=== PATIENT | female | born 1990 | race Caucasian/White ===

== ENCOUNTER 2020-06-25 15:35 | Emergency (ER) | payer BC, SELFPAY ==
[2020-06-25 16:36] VITALS: BP 101/73; PULSE 68; RESP 14; TEMP 36.9; O2SAT 100; BMI 31.1
--- NOTE | 2020-06-25 16:44 | HMH.EDUTC ---
[place] Disposition Clinical Impression: UTI (urinary tract infection) Qualifiers: Urinary tract infection type: site unspecified Hematuria presence: with hematuria Qualified Code(s): N39.0 - Urinary tract infection, site not specified Disposition: Home, Self-Care Condition on Discharge: Good Instructions: Urinary Tract Infection, DI for Urinary Tract Infection (UTI) Additional Instructions: Drink plenty of fluids. Take tylenol or ibuprofen for pain or fever. Take the medications as directed. Follow up with your regular doctor. GO TO THE ER FOR ANY WORSENING SYMPTOMS The pyridium will make your urine turn orange, this is an expected side effect. It will stain your clothes if it comes into contact with them. Prescriptions: Ondansetron [Zofran 4mg ODT] 4 mg PO Q8HP PRN #9 tab.rapdis PRN Reason: Nausea Transmission Status: Received by [facility] Sulfamethoxazole/Trimethoprim [Bactrim DS tablet] 1 each PO BID 7 Days #14 tab Transmission Status: Received by [facility] Phenazopyridine HCl [Pyridium 200mg Tablet] 200 pow PO TID #6 tab Transmission Status: Received by [facility] Referrals: PCP,No [Primary Care Provider] - Forms: Work/School Release Time of Disposition: 17:03 Medical Decision Making - Medical Records Medical records reviewed: No: I reviewed the patient's medical records. - Joey Inquiry Pt receiving controlled substance: No Vital Signs: 06/25/20 16:36 06/25/20 17:35 Temperature 98.4 F 98.4 F Temperature Source Oral Oral Pulse Rate 68 Pulse Rate [Radial] 68 Respiratory Rate 14 14 Blood Pressure 101/73 L Blood Pressure [Right Radial Artery] 101/73 L Blood Pressure Mean [Right Radial Artery] 82 Blood Pressure Source Automatic Cuff Blood Pressure Source [Right Radial Artery] Automatic Cuff Blood Pressure Position Sitting Blood Pressure Position [Right Radial Artery] Sitting 02 Sat by Pulse Oximetry 100 Oxygen Delivery Method Room Air Room Air - Lab Data Lab results reviewed: Yes: I reviewed the patient's lab results. Lab Results 06/25/20 17:27: Urine Color Dark yellow, Urine Appearance Slightly cloudy, Urine pH 7.0, Ur Specific Arnold 1.025, Urine Protein 2+, Urine Glucose (UA) Negative, Urine Ketones Trace, Urine Blood Negative, Urine Nitrate Negative, Urine Bilirubin 1+ A, Urine Urobilinogen 0.2, Ur Leukocyte Esterase Trace Orders (Tests/Meds): ORDERS Category Date Time Status Urine Culture Stat Micro 06/25/20 16:40 Received Medical Decision Narrative: At this time, she does not want to go to the er for further evaluation (ct scan for kidney stone). She is willing to return if her symptoms worsen. She is to f/u with her pcp tomorrow if her hematuria continues. [place] HPI - General Stated complaint: Possible UTI Time Seen by Provider: 06/25/20 16:45 - History of Present Illness Provider Complaint: She states that since this morning she has been having burning while she urinates and low back pain. She was at work when her symptoms began. She was sent to a [facility] in [place] and had a rapid covid test (it was negative), but at the time she did not realize that she was probably getting a uti. - Related Data Previous Rx's Medication Instructions Recorded predniSONE [Prednisone 20mg 20 mg PO BID #10 tab 11/25/18 Tab] Ondansetron [Zofran 4mg ODT] 4 mg PO Q8HP PRN #9 tab.rapdis 06/25/20 Phenazopyridine HCl [Pyridium 200 pow PO TID #6 tab 06/25/20 200mg Tablet] Sulfamethoxazole/Trimethoprim 1 each PO BID 7 Days #14 tab 06/25/20 [Bactrim DS tablet] Allergies Allergy/AdvReac Type Severity Reaction Status Date / Time No Known Allergies Allergy Verified 11/25/18 21:45 [facility] History - Hepatitis A Screen Attestation statement:: This patient has been screened for Hepatitis A risk factors. I have reviewed the patient's past medical history: Yes Oth
[2020-06-25 17:35] VITALS: BP 101/73; PULSE 68; RESP 14; TEMP 36.9; O2SAT 100
[2020-06-25 17:59] LABS: Apearance,Urine Slightly Cloudy (Clear); Color,Urine Dark Yellow (Yellow); Glucose,Urine (UA) Negative (Negative); Ketones,Urine TRACE (Negative); Protein,Urine 2+ (Negative); Specific Gravity, Urine 1.025 (1.005-1.030)
[2020-06-25 18:00] LABS: Bilirubin,Urine 1+ (Negative); Blood, Urine Negative (Negative); UTC Leukocyte Esterase,Urine Trace (Negative); UTC Nitrate,Urine Negative (Negative); Urobilinogen,Urine 0.2 EU/dl (0.2)
== END 2020-06-25 17:36 | disposition home or self-care (01) ==
PROVIDERS: Emergency Provider Nurse Practitioner Family
DX: N30.01 Acute cystitis with hematuria (principal)
CPT/HCPCS: 81003; 87086; 99201

== ENCOUNTER 2021-05-07 15:05 | Emergency (ER) | payer BC, SELFPAY ==
[2021-05-07 21:12] VITALS: BP 0/0; PULSE 0; RESP 0; TEMP -17.7; TEMP 0; O2SAT 0
== END 2021-05-07 21:13 | disposition home or self-care (01) ==
LOC: UTC 15:09
PROVIDERS: Emergency Provider Nurse Practitioner; PCP Pediatrics
DX: Z53.21 Procedure and treatment not carried out due to patient leaving prior to being seen by health care provider (principal)

== ENCOUNTER → 2021-05-07 20:24 | Outpatient (CLI) | payer BC, SELFPAY | PROVIDERS: Visit Provider Nurse Practitioner Family | DX: Z20.822 Contact with and (suspected) exposure to COVID-19 (principal); J02.9 Acute pharyngitis, unspecified | CPT/HCPCS: U0003 ==

== ENCOUNTER → 2021-07-28 19:46 | Outpatient (CLI) | payer BC, SELFPAY | PROVIDERS: Visit Provider Nurse Practitioner Family | DX: Z20.822 Contact with and (suspected) exposure to COVID-19 (principal); J02.9 Acute pharyngitis, unspecified | CPT/HCPCS: C9803; U0003; U0005 ==

== ENCOUNTER 2022-08-23 09:06 | Emergency (ER) | payer BC, SELFPAY ==
--- NOTE | 2022-08-23 10:13 | EXP.UTC ---
Discharge Plan Disposition Patient Disposition: Home, Self-Care Condition: Good Prescriptions Prescriptions: New azithromycin [Zithromax] 250 mg tablet 250 mg PO UD DOSE PK Qty: 6 0RF Rx Instructions: Take two (2) tablets today, then one (1) tablet days #2 thru #5 [id number] [Bromfed DM] 2-30-10 mg/5 mL Syrup 5 ml PO Q6H PRN (Reason: Cough) Qty: 240 0RF oseltamivir [Tamiflu] 75 mg capsule 75 mg PO BID Qty: 10 0RF Referrals Follow up/Referrals: Provider,Referral, MD [Primary Care Provider] - See instructions Activity Restrictions/Add. Instructions Additional Instructions/Restrictions: Drink plenty of fluids. Take tylenol or ibuprofen for pain or fever. Take the medications as directed. Follow up with your regular doctor. GO TO THE ER FOR ANY WORSENING SYMPTOMS Clinical Impressions Clinical Impression: Acute viral syndrome Stand Alone Forms Stand Alone Forms: Work/School Release Instructions Patient Instructions: DI for Influenza -- Adult, Oseltamivir Discharge ED Provider: Sandro Kim [facility] General Stated complaint: fever,headache,body aches Time Seen by Provider: 08/23/22 10:13 History of Present Illness Provider Complaint: She states that for the past 2 days she has had body aches, chills, fever, and malaise. Related Data Previous Rx's Medication Instructions Recorded azithromycin 250 mg tablet 250 mg PO UD DOSE PK #6 tabs 08/23/22 (Zithromax) gwbtieyfjknejpi-grdpbqzozuzsvuf-HV 5 ml PO Q6H PRN Cough #240 mL 08/23/22 2 mg-30 mg-10 mg/5 mL oral syrup (Bromfed DM) oseltamivir 75 mg capsule (Tamiflu) 75 mg PO BID #10 caps 08/23/22 Allergies Allergy/AdvReac Type Severity Reaction Status Date / Time No Known Allergies Allergy Verified 08/23/22 10:23 [facility] Disclaimer: The information contained in this section may have been updated after the patient was seen, as this information can be updated by other users. Social History Smoking Status: Current some day smoker alcohol intake: never substance use type: denies use current occupational status: employed Travel in the last 8 weeks: None household members: children housing: house ROS Obtained: Yes All systems reviewed & no additional complaints except as documented Constitutional Constitutional: Reports chills and Reports fever(s) Eyes Eyes: Denies eye discharge ENT Ears, Nose, Mouth, and Throat: Reports as per HPI Cardiovascular Cardiovascular: Denies chest pain Respiratory Respiratory: Denies chest congestion and Reports cough Gastrointestinal Gastrointestingal: Reports nausea; Denies abdominal pain, constipation, cramping, diarrhea or vomiting Musculoskeletal Musculoskeletal: Denies arthralgias Integumentary/Breasts Skin/Breast: Denies rash Neurologic Neurologic: Denies paresthesias Physical Exam General General appearance: alert and in no apparent distress Head Head exam: atraumatic, normocephalic and normal inspection Eye Eye exam: Present normal appearance, PERRL and EOMI ENT ENT exam: Present normal exam, normal oropharynx, mucous membranes moist, TM's normal bilaterally and normal external ear exam Neck Neck exam: Present normal inspection, full ROM and trachea midline; Absent meningismus or lymphadenopathy Chest Chest inspection: Present normal inspection and symmetric chest wall rise; Absent tenderness Respiratory Respiratory exam: Present normal lung sounds bilaterally; Absent respiratory distress Cardiovascular Cardiovascular exam: Present regular rate and normal rhythm; Absent JVD Abdominal Exam Abdominal exam: Present soft and normal bowel sounds; Absent distention, tenderness or guarding Extremities Exam Extremities exam: Present normal inspection, full ROM and normal capillary refill; Absent calf tenderness Back Exam Back exam: Present normal inspection; Absent tenderness Neurologi
[2022-08-23 10:19] VITALS: BP 108/69; PULSE 94; RESP 16; TEMP 37.1; O2SAT 100; BMI 32.9
[2022-08-23 10:21] LABS: Coronavirus 19, PCR Not Detected (NotDetected); Influenza B, PCR Not Detected (NotDetected)
[2022-08-23 10:56] VITALS: BP 108/69; PULSE 94; RESP 16; TEMP 37.1
[2022-08-23 12:54] LABS: Influenza A, PCR Detected (NotDetected)
== END 2022-08-23 11:11 | disposition home or self-care (01) ==
PROVIDERS: Emergency Provider Nurse Practitioner Family
DX: J10.1 Influenza due to other identified influenza virus with other respiratory manifestations (principal)
CPT/HCPCS: 99212; C9803; G0463; U0003; U0005

== ENCOUNTER 2022-10-25 10:52 | Emergency (ER) | payer BC, SELFPAY ==
[2022-10-25 11:55] VITALS: BP 144/75; PULSE 98; RESP 19; TEMP 37.5; O2SAT 100; BMI 31.2
[2022-10-25 12:05] LABS: UTC Strep Screen (Rapid) Positive (Negative)
--- NOTE | 2022-10-25 12:33 | EXP.UTC ---
Discharge Plan Disposition Patient Disposition: Home, Self-Care Condition: Good Prescriptions Prescriptions: New amoxicillin 875 mg tablet 875 mg PO Q12H Qty: 20 0RF Referrals Follow up/Referrals: Provider,Referral, MD [Primary Care Provider] - See instructions Activity Restrictions/Add. Instructions Additional Instructions/Restrictions: *Monitor Temp, Over the counter Motrin or Tylenol as directed/as needed Tylenol every 4 hours and Motrin every 6 hours (as long as your family doctor has told you that you can take it) for fever or pain. and straight to ER if unable to lower temp less than 101.0 after medication given *Warm salt water gargles may help to soothe the throat *Throat Lozenges? *Warm fluids like tea with honey may help to soothe the throat? *Sleep elevated *Humidifier/Vaporizer *If you did not take Penicillin shot or was unable to, start taking antibiotic immediately and make sure that you take it for the FULL length of time although you should start to feel better in 24-48 hours *change toothbrush and toothpaste 24-48 hours after starting to take antibiotics so you do not reinfect yourself Monitor Temp. Tylenol and/or Ibuprofen as needed. ER if fever is no less than 101 despite alternating Tylenol and Ibuprofen * Encourage fluids, water, Gatorade, powerade, pedialyte if infant/toddler/or child *Cold fluids, popsicles and ice cream may feel good on his throat Follow up IMMEDIATELY for new or worsening symptoms or no Noticeable improvement over the next 48-72 hours. 911 for difficulty breathing or swallowing Clinical Impressions Clinical Impression: Strep throat Stand Alone Forms Stand Alone Forms: Work/School Release Instructions Patient Instructions: DI for Strep Throat, Strep Throat Discharge ED Provider: Pauline Del Valle [facility] General Stated complaint: Sore throat fever bodyaches chills Mode of Arrival: Ambulatory Source of Information: Patient Limitations: No Limitations Time Seen by Provider: 10/25/22 12:33 Description of Symptoms (Recalled from Triage Doc. by RN): PATIENT C/O SORE THROAT, CHILLS, BODY ACHES, AND HEADACHE SINCE THIS MORNING HEENT Symptoms (Recalled from RN notes): Yes Resp Symptoms (Recalled from RN notes): No Skin Symptoms (Recalled from RN notes): No MS Symptoms (Recalled from RN notes): No Functional Status (Recalled from RN notes): WNL History of Present Illness Provider Complaint: Patient states that she started this morning with fever, headache, chills, and sore throat States that her throat hurts when she swallows and feels swollen As the day went on she was feeling worse so she came in to get it checked Related Data Previous Rx's Medication Instructions Recorded amoxicillin 875 mg tablet 875 mg PO Q12H #20 tabs 10/25/22 Allergies Allergy/AdvReac Type Severity Reaction Status Date / Time No Known Allergies Allergy Verified 08/23/22 10:23 Worker's Comp Is this a Worker's Comp case?: No [facility] Disclaimer: The information contained in this section may have been updated after the patient was seen, as this information can be updated by other users. Surgical History (Updated 10/25/22 @ 12:07 by Emily Pinzon RN) History of section Social History (Updated 10/25/22 @ 12:07 by Emily Pinzon RN) Smoking Status: Current some day smoker alcohol intake: never substance use type: denies use current occupational status: employed Travel in the last 8 weeks: None household members: children housing: house ROS Obtained: Yes All systems reviewed & no additional complaints except as documented and Yes Systems reviewed as appropriate & no additional complaints except as documented Constitutional Constitutional: Reports system reviewed and no additional complaints, except as documented, Reports as per HPI, Reports fever(s) and Reports headache(s) ENT Ears, Nose, Mouth, and Throat: Reports system
[2022-10-25 12:42] VITALS: BP 144/75; PULSE 98; RESP 19; TEMP 37.5; O2SAT 100
== END 2022-10-25 12:45 | disposition home or self-care (01) ==
PROVIDERS: Emergency Provider Nurse Practitioner
DX: J02.0 Streptococcal pharyngitis (principal)
CPT/HCPCS: 87880; 99212; 99213; G0463

== ENCOUNTER 2022-12-01 11:29 | Emergency (ER) | payer BC, SELFPAY ==
[2022-12-01 11:50] VITALS: BP 112/70; PULSE 102; RESP 14; TEMP 37; O2SAT 98; BMI 30.2
[2022-12-01 12:36] VITALS: BP 112/70; PULSE 102; RESP 14; TEMP 37; O2SAT 98
[2022-12-01 12:36] LABS: UTC Strep Screen (Rapid) Positive (Negative)
--- NOTE | 2022-12-01 12:45 | EXP.UTC ---
Discharge Plan Disposition Patient Disposition: Home, Self-Care Condition: Good Prescriptions Prescriptions: New penicillin V potassium 500 mg tablet 500 mg PO BID 10 Days Qty: 20 0RF No Action amoxicillin 875 mg tablet 875 mg PO Q12H Qty: 20 0RF Referrals Follow up/Referrals: Provider,Referral, [Primary Care Provider] - See instructions Activity Restrictions/Add. Instructions Additional Instructions/Restrictions: *Monitor Temp, Over the counter Motrin or Tylenol as directed/as needed Tylenol every 4 hours and Motrin every 6 hours (as long as your family doctor has told you that you can take it) for fever or pain. and straight to ER if unable to lower temp less than 101.0 after medication given *Warm salt water gargles may help to soothe the throat *Throat Lozenges? *Warm fluids like tea with honey may help to soothe the throat? *Sleep elevated *Humidifier/Vaporizer *If you did not take Penicillin shot or was unable to, start taking antibiotic immediately and make sure that you take it for the FULL length of time although you should start to feel better in 24-48 hours *change toothbrush and toothpaste 24-48 hours after starting to take antibiotics so you do not reinfect yourself Monitor Temp. Tylenol and/or Ibuprofen as needed. ER if fever is no less than 101 despite alternating Tylenol and Ibuprofen * Encourage fluids, water, Gatorade, powerade, pedialyte if /toddler/or child *Cold fluids, popsicles and ice cream may feel good on his throat Follow up IMMEDIATELY for new or worsening symptoms or no Noticeable improvement over the next 48-72 hours. 911 for difficulty breathing or swallowing Clinical Impressions Clinical Impression: Strep throat Stand Alone Forms Stand Alone Forms: Work/School Release Instructions Patient Instructions: DI for Strep Throat, Strep Throat Discharge ED Provider: [place]ine Del Valle [facility] [place] Stated complaint: Sore throat, fever, bodyaches, headache Mode of Arrival: Ambulatory Source of Information: Patient Limitations: No Limitations Time Seen by Provider: 12/01/22 12:46 Description of Symptoms (Recalled from Triage Doc. by RN): PATIENT C/O SORE THROAT HEENT Symptoms (Recalled from RN notes): Yes Resp Symptoms (Recalled from RN notes): No Skin Symptoms (Recalled from RN notes): No MS Symptoms (Recalled from RN notes): No Functional Status (Recalled from RN notes): WNL History of Present Illness Provider Complaint: Patient states that her throat has been hurting for a couple of days and worse today States that she had strep throat about a month ago and feels like it did then so today she came in Related Data Previous Rx's Medication Instructions Recorded amoxicillin 875 mg tablet 875 mg PO Q12H #20 tabs 10/25/22 penicillin V potassium 500 mg 500 mg PO BID 10 days #20 tabs 12/01/22 tablet Allergies Allergy/AdvReac Type Severity Reaction Status Date / Time No Known Allergies Allergy Verified 08/23/22 10:23 Worker's Comp Is this a Worker's Comp case?: No [facility] Disclaimer: The information contained in this section may have been updated after the patient was seen, as this information can be updated by other users. Surgical History (Updated 10/25/22 @ 12:07 by Emily Pinzon RN) History of section Social History (Updated 10/25/22 @ 12:07 by Emily Pinzon RN) Smoking Status: Current some day smoker alcohol intake: never substance use type: denies use current occupational status: employed Travel in the last 8 weeks: None household members: children housing: house ROS Obtained: Yes All systems reviewed & no additional complaints except as documented and Yes Systems reviewed as appropriate & no additional complaints except as documented ENT Ears, Nose, Mouth, and Throat: Reports system reviewed and no additional complaints, except as documented, Reports as per HPI and Report
== END 2022-12-01 12:55 | disposition home or self-care (01) ==
PROVIDERS: Emergency Provider Nurse Practitioner
DX: J02.0 Streptococcal pharyngitis (principal); R51.9 Headache, unspecified; R50.9 Fever, unspecified; F17.200 Nicotine dependence, unspecified, uncomplicated
CPT/HCPCS: 87880; 99212; 99214; G0463

== ENCOUNTER 2023-04-28 10:14 | Emergency (ER) | payer BC, SELFPAY ==
[2023-04-28 10:14] VITALS: BP 135/91; PULSE 78; RESP 18; TEMP 36.6; O2SAT 97; BMI 32.0
--- NOTE | 2023-04-28 10:20 | EXP.UTC ---
Discharge Plan Disposition Patient Disposition: Home, Self-Care Condition: Good Prescriptions Prescriptions: New fluconazole [Diflucan] 150 mg tablet 150 mg PO ONCE Qty: 1 2RF phenazopyridine [Pyridium] 200 mg tablet 200 mg PO Q8H 2 Days Qty: 6 0RF sulfamethoxazole-trimethoprim [Bactrim DS] 800-160 mg Tablet 1 tab PO BID Qty: 14 0RF No Action penicillin V potassium 500 mg tablet 500 mg PO BID 10 Days Qty: 20 0RF amoxicillin 875 mg tablet 875 mg PO Q12H Qty: 20 0RF Referrals Follow up/Referrals: Provider,Referral, MD [Primary Care Provider] - See instructions Activity Restrictions/Add. Instructions Additional Instructions/Restrictions: Drink plenty of fluids. Take tylenol or ibuprofen for pain or fever. Take the medications as directed. Follow up with your regular doctor. GO TO THE ER FOR ANY WORSENING SYMPTOMS The pyridium will make your urine turn orange, this is an expected side effect. It will stain your clothes if it comes into contact with them. We will culture the urine. That will tell what bacteria is causing your infection and which antibiotics will treat it best. Sometimes the first antibiotic we prescribe turns out to not work against different bacteria. So, make sure you follow up within 3 days if you are not getting better. Clinical Impressions Clinical Impression: UTI (urinary tract infection) Instructions Patient Instructions: Urine Culture, DI for Urinary Tract Infection (UTI), Phenazopyridine Discharge ED Provider: Sandro Kim [facility] General Stated complaint: possible uti Time Seen by Provider: 04/28/23 10:20 History of Present Illness Provider Complaint: She states that for the past 2 days she has had low back pain, dysuria, any urinary frequency. Related Data Previous Rx's Medication Instructions Recorded amoxicillin 875 mg tablet 875 mg PO Q12H #20 tabs 10/25/22 penicillin V potassium 500 mg 500 mg PO BID 10 days #20 tabs 12/01/22 tablet fluconazole 150 mg tablet 150 mg PO ONCE #1 tab 04/28/23 (Diflucan) phenazopyridine 200 mg tablet 200 mg PO Q8H 2 days #6 tabs 04/28/23 (Pyridium) sulfamethoxazole 800 1 tab PO BID #14 tabs 04/28/23 mg-trimethoprim 160 mg tablet (Bactrim DS) Allergies Allergy/AdvReac Type Severity Reaction Status Date / Time No Known Allergies Allergy Verified 08/23/22 10:[address] [facility] Disclaimer: The information contained in this section may have been updated after the patient was seen, as this information can be updated by other users. Surgical History (Updated 10/25/22 @ 12:07 by Emily Pinzon RN) History of section Social History (Updated 10/25/22 @ 12:07 by Emily Pinzon RN) Smoking Status: Current some day smoker alcohol intake: never substance use type: denies use current occupational status: employed Travel in the last 8 weeks: None household members: children housing: house ROS Obtained: Yes All systems reviewed & no additional complaints except as documented Constitutional Constitutional: Reports system reviewed and no additional complaints, except as documented, Denies chills and Denies fever(s) Eyes Eyes: Denies eye discharge ENT Ears, Nose, Mouth, and Throat: Denies dysphagia, Denies sore throat and Denies throat swelling Cardiovascular Cardiovascular: Denies chest pain and Denies dyspnea Respiratory Respiratory: Denies chest congestion, Denies cough and Denies dyspnea Gastrointestinal Gastrointestingal: Denies abdominal pain, constipation, diarrhea, dysphagia, nausea or vomiting Genitourinary Female Genitourinary: Reports as per HPI, Reports dysuria, Reports urinary frequency, Denies urinary incontinence, Reports urinary hesitancy and Reports urinary urgency Musculoskeletal Musculoskeletal: Denies arthralgias and Reports back pain Integumentary/Breasts Skin/Breast: Denies rash Neurologic Neurologic: Denies paresthesias Allergic/Im
[2023-04-28 10:32] LABS: Microscopic, Urine URINE MICROSCOPIC (MICROSCOPIC)
[2023-04-28 10:36] LABS: Appearance,Urine SL CLOUDY (Clear); Bilirubin,Urine Negative (Negative); Blood, Urine TRACE-I (Negative); Color,Urine YELLOW (Yellow); Glucose,Urine (UA) Negative (Negative); Ketones,Urine Negative (Negative); Leukocyte Esterase,Urine Negative (Negative); Nitrate,Urine Negative (Negative); PH,Urine 6.5 (5.0-8.5); Protein,Urine 1+ (Negative); Specific Gravity, Urine 1.025 (1.005-1.030); Urobilinogen,Urine 0.2 EU/dl (0.2)
[2023-04-28 10:48] LABS: Bacteria,Urine 1+ /lpf; Mucus,Urine 1+ /lpf
[2023-04-28 11:04] VITALS: BP 135/91; PULSE 78; RESP 18; TEMP 36.6; O2SAT 97
== END 2023-04-28 11:04 | disposition home or self-care (01) ==
PROVIDERS: Emergency Provider Nurse Practitioner Family
DX: N39.0 Urinary tract infection, site not specified (principal); B96.89 Other specified bacterial agents as the cause of diseases classified elsewhere; M54.59 Other low back pain; F17.210 Nicotine dependence, cigarettes, uncomplicated
CPT/HCPCS: 81001; 87086; 87088; 87186; 99212; 99214; G0463

== ENCOUNTER 2023-06-13 10:30 | Emergency (ER) | payer BC, SELFPAY ==
[2023-06-13 10:30] VITALS: BP 153/85; PULSE 108; RESP 18; TEMP 37.2; O2SAT 98; BMI 27.8
--- NOTE | 2023-06-13 10:48 | EXP.UTC ---
Discharge Plan Disposition Patient Disposition: Home, Self-Care Condition: Good Prescriptions Prescriptions: New prednisone 10 mg tablet 10 mg PO BID 4 Days Qty: 8 0RF amoxicillin [amoxicillin] 875 mg tablet 875 mg PO Q12H Qty: 20 0RF puyyxffgvyrageh-ukbyxbszv-OO [Bromfed DM] 2-30-10 mg/5 mL Syrup 5 ml PO Q6H PRN (Reason: Cough) Qty: 240 0RF Referrals Follow up/Referrals: Andre Osman MD [Primary Care Provider] - See instructions Activity Restrictions/Add. Instructions Additional Instructions/Restrictions: Drink plenty of fluids. Take tylenol or ibuprofen for pain or fever. Take the medications as directed. Follow up with your regular doctor. GO TO THE ER FOR ANY WORSENING SYMPTOMS Throw your tooth brush away and get a new one. Clinical Impressions Clinical Impression: Strep pharyngitis Stand Alone Forms Stand Alone Forms: Work/School Release Instructions Patient Instructions: Strep Throat, DI for Strep Throat Discharge ED Provider: Sandro Kim [facility] General Stated complaint: sore throat, body aches Time Seen by Provider: 06/13/23 10:48 History of Present Illness Provider Complaint: She states that she has had sore throat, fever, chills, and body aches for the past 1 day. Related Data Previous Rx's Medication Instructions Recorded amoxicillin 875 mg tablet 875 mg PO Q12H #20 tabs 06/13/23 wcjyrdmwsromusz-albncsdleymkmyq-LZ 5 ml PO Q6H PRN Cough #240 mL 06/13/23 2 mg-30 mg-10 mg/5 mL oral syrup (Bromfed DM) prednisone 10 mg tablet 10 mg PO BID 4 days #8 tabs 06/13/23 Allergies Allergy/AdvReac Type Severity Reaction Status Date / Time No Known Allergies Allergy Verified 06/13/23 10:53 [facility] Disclaimer: The information contained in this section may have been updated after the patient was seen, as this information can be updated by other users. Surgical History History of section Social History Smoking Status: Current some day smoker alcohol intake: never substance use type: denies use current occupational status: employed Travel in the last 8 weeks: None household members: children housing: house ROS Obtained: Yes All systems reviewed & no additional complaints except as documented Constitutional Constitutional: Reports chills and Reports fever(s) Eyes Eyes: Denies eye discharge ENT Ears, Nose, Mouth, and Throat: Reports as per HPI Cardiovascular Cardiovascular: Denies chest pain Respiratory Respiratory: Denies chest congestion and Reports cough Gastrointestinal Gastrointestingal: Reports nausea; Denies abdominal pain, constipation, cramping, diarrhea or vomiting Musculoskeletal Musculoskeletal: Denies arthralgias Integumentary/Breasts Skin/Breast: Denies rash Neurologic Neurologic: Denies paresthesias Physical Exam General General appearance: alert and in no apparent distress Head Head exam: atraumatic, normocephalic and normal inspection Eye Eye exam: Present normal appearance, PERRL and EOMI ENT ENT exam: Present mucous membranes moist and normal external ear exam Expanded ENT Exam TM/Canal exam: Bilateral TM: erythema and bulging Nose exam: Absent sinus tenderness Mouth exam: Present normal external inspection; Absent drooling Teeth exam: Present normal inspection Throat exam: Present tonsillar erythema, tonsillomegaly and tonsillar exudate Neck Neck exam: Present normal inspection, full ROM and trachea midline; Absent tenderness, meningismus or lymphadenopathy Chest Chest inspection: Present normal inspection and symmetric chest wall rise; Absent tenderness Respiratory Respiratory exam: Present normal lung sounds bilaterally; Absent respiratory distress, wheezes or stridor Cardiovascular Cardiovascular exam: Present regular rate and normal rhythm; Absent systolic murmur or diastolic murmur A
[2023-06-13 10:56] LABS: UTC Strep Screen (Rapid) Positive (Negative)
[2023-06-13 11:09] VITALS: BP 153/85; PULSE 108; RESP 18; TEMP 37.2; O2SAT 98
== END 2023-06-13 11:09 | disposition home or self-care (01) ==
PROVIDERS: Emergency Provider Nurse Practitioner Family; PCP Family Medicine
DX: J02.0 Streptococcal pharyngitis (principal); F10.129 Alcohol abuse with intoxication, unspecified
CPT/HCPCS: 87880; 99212; 99214; G0463

== ENCOUNTER 2024-07-15 11:17 | Emergency (ER) | payer BC, SELFPAY ==
[2024-07-15 11:30] VITALS: BP 132/94; PULSE 88; RESP 18; TEMP 36.4; O2SAT 98; BMI 26.5
--- NOTE | 2024-07-15 11:57 | EXP.UTC ---
Discharge Plan Disposition Patient Disposition: Home, Self-Care Condition: Good Prescriptions Prescriptions: New amoxicillin 875 mg tablet 875 mg PO Q12H Qty: 20 0RF methylprednisolone 4 mg Tablets,Dose Pack 4 mg PO DIRECTED 6 Days Qty: 21 0RF Rx Instructions: Take 1 pack as directed for 6 days rabqpyhbyxvdoag-bvqxyxlhz-ZF [Bromfed DM] 2-30-10 mg/5 mL Syrup 5 ml PO Q6H PRN (Reason: Cough) Qty: 240 0RF No Action lisdexamfetamine [Vyvanse] 20 mg capsule 20 mg PO DAILY Patient Comments: TAKE 1 CAPSULE BY MOUTH EVERY MORNING Referrals Follow up/Referrals: Andre Osman MD [Primary Care Provider] - See instructions Activity Restrictions/Add. Instructions Additional Instructions/Restrictions: Drink plenty of fluids. Take tylenol or ibuprofen for pain or fever. Take the medications as directed. Follow up with your regular doctor. GO TO THE ER FOR ANY WORSENING SYMPTOMS Clinical Impressions Clinical Impression: Sinusitis, Pharyngitis Stand Alone Forms Stand Alone Forms: Work/School Release Instructions Patient Instructions: Sinusitis, DI for Sinusitis Print Language Print Language: Maori Discharge ED Provider: Sandro Kim [facility] [place] HPI General Stated complaint: chest congestion, cough, sore throat, yellow mucus Mode of Arrival: Ambulatory Source of Information: Patient Time Seen by Provider: 07/15/24 11:57 Description of Symptoms (Recalled from Triage Doc. by RN): YELLOW/GREEN MUCUS, HORSE THROAT, KHAN, CHEST/NOSE CONGESTION HEENT Symptoms (Recalled from RN notes): Yes Resp Symptoms (Recalled from RN notes): Yes Skin Symptoms (Recalled from RN notes): No MS Symptoms (Recalled from RN notes): No Functional Status (Recalled from RN notes): WNL Related Data Home Medications ?Medication ?Instructions ?Recorded ?Confirmed lisdexamfetamine 20 mg capsule 20 mg PO DAILY 07/15/24 07/15/24 (Vyvanse) Previous Rx's ?Medication ?Instructions ?Recorded amoxicillin 875 mg tablet 875 mg PO Q12H #20 tabs 07/15/24 pnatjqasvufkwhn-rburreyzfqilkcs-IX 5 ml PO Q6H PRN Cough #240 mL 07/15/24 2 mg-30 mg-10 mg/5 mL oral syrup (Bromfed DM) methylprednisolone 4 mg tablets in 4 mg PO DIRECTED 6 days #21 tabs 07/15/24 a dose pack Allergies Allergy/AdvReac Type Severity Reaction Status Date / Time No Known Allergies Allergy Verified 06/13/23 10:53 Worker's Comp Is this a Worker's Comp case?: No [facility] Disclaimer: The information contained in this section may have been updated after the patient was seen, as this information can be updated by other users. Surgical History History of section Social History Smoking Status: Current some day smoker alcohol intake: never substance use type: denies use current occupational status: employed Travel in the last 8 weeks: None household members: children housing: house ROS Obtained: Yes All systems reviewed & no additional complaints except as documented Constitutional Constitutional: Reports chills and Reports fever(s) Eyes Eyes: Denies eye discharge ENT Ears, Nose, Mouth, and Throat: Reports as per HPI Cardiovascular Cardiovascular: Denies chest pain Respiratory Respiratory: Denies chest congestion and Reports cough Gastrointestinal Gastrointestingal: Reports nausea; Denies abdominal pain, constipation, cramping, diarrhea or vomiting Musculoskeletal Musculoskeletal: Denies arthralgias Integumentary/Breasts Skin/Breast: Denies rash Neurologic Neurologic: Denies paresthesias Physical Exam General General appearance: alert and in no apparent distress Head Head exam: atraumatic, normocephalic and normal inspection Eye Eye exam: Present normal appearance, PERRL and EOMI ENT ENT exam: Present mucous membranes moist and normal external ear exam Expanded ENT Exam TM/Canal exam: Bilateral TM: erythema and bulging Nose exam: Absent sinus tenderness Mouth exam: Present normal external inspection; Absent drooling Teeth exam: Present normal inspection Throat exam: Present tonsillar erythema, tonsillomegaly and tonsillar exudate Neck Neck exam: Present normal inspection, full ROM and trachea midline; Absent tenderness, meningismus or lymphadenopathy Chest Chest inspection: Present normal inspection and symmetric chest wall rise; Absent tenderness Respiratory Respiratory exam: Present normal lung sounds bilaterally; Absent respiratory distress, wheezes, stridor or accessory muscle use Cardiovascular Cardiovascular exam: Present regular rate and normal rhythm; Absent systolic murmur or diastolic murmur Abdominal Exam Abdominal exam: Present soft and normal bowel sounds; Absent distention, tenderness, guarding, rebound or rigidity Extremities Exam Extremities exam: Present normal inspection and normal capillary refill; Absent calf tenderness Back Exam Back exam: Present normal inspection and full ROM; Absent tenderness, CVA tenderness (R) or CVA tenderness (L) Neurological Exam Neurological exam: Present alert, oriented X3 and CN II-XII intact Psychiatric Psychiatric exam: Present normal affect and normal mood Skin Skin exam: Present warm, dry, intact and normal color Medical Decision Making Medical Records Medical records reviewed: No I reviewed the patient's medical records. Screening: Per USPSTF and CDC recommendations, given the prevalence of disease in our region, it is our hospital?s policy to screen for HIV and viral Hepatitis for all patients aged 18 and over and those with ongoing risk factors. Joey Inquiry Pt receiving controlled substance: No Vital Signs: 07/15/24 11:30 Temperature 97.6 F Temperature Source Oral Pulse Rate [Right Radial] 88 Respiratory Rate 18 Blood Pressure [Left Arm] 132/94 H Blood Pressure Mean [Left Arm] 106 02 Sat by Pulse Oximetry 98 Lab Data Lab results reviewed: Yes I reviewed the patient's lab results.
[2024-07-15 12:16] VITALS: BP 132/94; PULSE 88; RESP 18; TEMP 36.4
== END 2024-07-15 12:19 | disposition home or self-care (01) ==
PROVIDERS: Emergency Provider Nurse Practitioner Family; PCP Family Medicine
DX: J02.9 Acute pharyngitis, unspecified (principal); J01.80 Other acute sinusitis
CPT/HCPCS: 99212; G0381

== ENCOUNTER 2024-10-11 08:22 | Emergency (ER) | payer BC, SELFPAY ==
[2024-10-11 08:46] VITALS: BP 139/92; PULSE 99; RESP 16; TEMP 36.8; O2SAT 100; BMI 26.5
--- NOTE | 2024-10-11 08:52 | ED_ITS ---
Discharge Plan Disposition Patient Disposition: Home, Self-Care Condition: Good Prescriptions Prescriptions: New oseltamivir [Tamiflu] 75 mg capsule 75 mg PO BID 5 Days Qty: 10 0RF ondansetron 4 mg Tablet,Disintegrating 4 mg PO Q8H PRN (Reason: Nausea) Qty: 12 0RF ihwenxqafogpgtq-vtehlegie-TC [Bromfed DM] 2-30-10 mg/5 mL Syrup 5 ml PO Q6H PRN (Reason: Cough) Qty: 240 0RF No Action lisdexamfetamine [Vyvanse] 20 mg capsule 20 mg PO DAILY Patient Comments: TAKE 1 CAPSULE BY MOUTH EVERY MORNING amoxicillin 875 mg tablet 875 mg PO Q12H Qty: 20 0RF methylprednisolone 4 mg Tablets,Dose Pack 4 mg PO DIRECTED 6 Days Qty: 21 0RF Rx Instructions: Take 1 pack as directed for 6 days ffffteztgnfbrlm-svswnxbyo-NB [Bromfed DM] 2-30-10 mg/5 mL Syrup 5 ml PO Q6H PRN (Reason: Cough) Qty: 240 0RF Referrals Follow up/Referrals: Provider,Referral, MD [Primary Care Provider] - See instructions Activity Restrictions/Add. Instructions Additional Instructions/Restrictions: Drink plenty of fluids. Take tylenol or ibuprofen for pain or fever. Take the medications as directed. Follow up with your regular doctor. GO TO THE ER FOR ANY WORSENING SYMPTOMS Clinical Impressions Clinical Impression: Influenza A Stand Alone Forms Stand Alone Forms: Work/School Release Instructions Patient Instructions: DI for Influenza -- Adult, Ondansetron, Oseltamivir Print Language Print Language: French Discharge ED Provider: Sandro Kim [facility] General Stated complaint: congestion, headaches, body aches, cough Mode of Arrival: Ambulatory Source of Information: Patient Limitations: No Limitations Time Seen by Provider: 10/11/24 08:52 Description of Symptoms (Recalled from Triage Doc. by RN): Reports upper respiratory infection, runny nose, coughing and body aches. HEENT Symptoms (Recalled from RN notes): Yes Resp Symptoms (Recalled from RN notes): Yes Skin Symptoms (Recalled from RN notes): No MS Symptoms (Recalled from RN notes): No Functional Status (Recalled from RN notes): wnl Related Data Home Medications ?Medication ?Instructions ?Recorded ?Confirmed lisdexamfetamine 20 mg capsule 20 mg PO DAILY 07/15/24 07/15/24 (Vyvanse) Previous Rx's ?Medication ?Instructions ?Recorded amoxicillin 875 mg tablet 875 mg PO Q12H #20 tabs 07/15/24 mfveicmkzcqoesm-ejpfuhcqzxzgpdr-EK 5 ml PO Q6H PRN Cough #240 mL 07/15/24 2 mg-30 mg-10 mg/5 mL oral syrup (Bromfed DM) methylprednisolone 4 mg tablets in 4 mg PO DIRECTED 6 days #21 tabs 07/15/24 a dose pack uyqpgalhjckwupd-anpcvysxnjnavtd-HJ 5 ml PO Q6H PRN Cough #240 mL 10/11/24 2 mg-30 mg-10 mg/5 mL oral syrup (Bromfed DM) ondansetron 4 mg disintegrating 4 mg PO Q8H PRN Nausea #12 tabs 10/11/24 tablet oseltamivir 75 mg capsule (Tamiflu) 75 mg PO BID 5 days #10 caps 10/11/24 Allergies Allergy/AdvReac Type Severity Reaction Status Date / Time No Known Allergies Allergy Verified 06/13/23 10:53 Worker's Comp Is this a Worker's Comp case?: No [facility] Disclaimer: The information contained in this section may have been updated after the patient was seen, as this information can be updated by other users. Surgical History History of section Social History Smoking Status: Current some day smoker alcohol intake: never substance use type: denies use current occupational status: employed Travel in the last 8 weeks: None household members: children housing: house Have you lived/traveled outside US in past 30 days?: No Contact w/someone who lives/traveled outside US past 30 days?: No Exposure to someone with infectious disease in past 14 days?: No Do you have a fever (greater than 100.4 F or 38 C)?: No Have you tested positive for COVID-19: No Exposed to someone with COVID-19 in past 14 days?: No Do you have a sore throat?: No Do you have a cough?: Yes Do you have any weakness?: No Do you have any diarrhea?: No Are you experiencing any unusual bleeding?: No Do you have any muscle aches/pain?: Yes Do you have any abdominal pain?: No Are you experiencing loss of taste or smell?: No ROS Obtained: Yes All systems reviewed & no additional complaints except as documented Constitutional Constitutional: Reports chills and Reports fever(s) Eyes Eyes: Denies eye discharge ENT Ears, Nose, Mouth, and Throat: Reports as per HPI Cardiovascular Cardiovascular: Denies chest pain Respiratory Respiratory: Denies chest congestion and Reports cough Gastrointestinal Gastrointestingal: Reports nausea; Denies abdominal pain, constipation, cramping, diarrhea or vomiting Musculoskeletal Musculoskeletal: Denies arthralgias Integumentary/Breasts Skin/Breast: Denies rash Neurologic Neurologic: Denies paresthesias Physical Exam General General appearance: alert and in no apparent distress Head Head exam: atraumatic, normocephalic and normal inspection Eye Eye exam: Present normal appearance, PERRL and EOMI ENT ENT exam: Present normal exam, normal oropharynx, mucous membranes moist, TM's normal bilaterally and normal external ear exam Neck Neck exam: Present normal inspection, full ROM and trachea midline; Absent meningismus or lymphadenopathy Chest Chest inspection: Present normal inspection and symmetric chest wall rise; Absent tenderness Respiratory Respiratory exam: Present normal lung sounds bilaterally; Absent respiratory distress Cardiovascular Cardiovascular exam: Present regular rate and normal rhythm; Absent JVD Abdominal Exam Abdominal exam: Present soft and normal bowel sounds; Absent distention, tenderness or guarding Extremities Exam Extremities exam: Present normal inspection, full ROM and normal capillary refill; Absent calf tenderness Back Exam Back exam: Present normal inspection; Absent tenderness Neurological Exam Neurological exam: Present alert and oriented X3 Psychiatric Psychiatric exam: Present normal affect and normal mood Skin Skin exam: Present warm, dry, intact and normal color Lymphatic Lymphatic Findings: no adenopathy Medical Decision Making Medical Records Medical records reviewed: No I reviewed the patient's medical records. Screening: Per USPSTF and CDC recommendations, given the prevalence of disease in our region, it is our hospital?s policy to screen for HIV and viral Hepatitis for all patients aged 18 and over and those with ongoing risk factors. Joey Inquiry Pt receiving controlled substance: No Vital Signs: 10/11/24 08:46 Temperature 98.3 F Temperature Source Oral Pulse Rate [Radial] 99 H Respiratory Rate 16 Blood Pressure [Right Arm] 139/92 H Blood Pressure Mean [Right Arm] 107 Blood Pressure Source [Right Arm] Automatic Cuff Blood Pressure Position [Right Arm] Sitting 02 Sat by Pulse Oximetry 100 Oxygen Delivery Method Room Air Lab Data Lab results reviewed: Yes I reviewed the patient's lab results.
[2024-10-11 08:54] LABS: UTC Influenza A Antigen Positive (Negative); UTC Influenza B Antigen Negative (Negative)
[2024-10-11 09:45] VITALS: BP 139/92; PULSE 99; RESP 16; TEMP 36.8
== END 2024-10-11 09:55 | disposition home or self-care (01) ==
PROVIDERS: Emergency Provider Nurse Practitioner Family
DX: J09.X2 Influenza due to identified novel influenza A virus with other respiratory manifestations (principal)
CPT/HCPCS: 87804; 99212; G0381

== ENCOUNTER 2024-10-24 10:09 | Outpatient (CLI) | payer BC, SELFPAY | END 2024-10-24 23:59 | disposition home or self-care (01) | LOC: LAB.DROPOF 10-25 10:09 | PROVIDERS: PCP Nurse Practitioner Family; Visit Provider Nurse Practitioner Family | DX: N39.0 Urinary tract infection, site not specified (principal) | CPT/HCPCS: 87086 ==

== ENCOUNTER 2025-08-10 10:35 | Outpatient (CLI) | payer BC, SELFPAY ==
[2025-08-10 20:08] LABS: Coronavirus 19, PCR Not Detected (NotDetected); Influenza A, PCR Not Detected (NotDetected); Influenza B, PCR Not Detected (NotDetected)
--- OUTSIDE RECORDS SUMMARY | 2025-08-12 11:25 | XMS_ITS | Patient Health Record ---
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 Role Phone Andre Osman Unavailable [phone] Allergies No Known Allergies Reason For Referral No Information Medications Medication SIG (Take, Route, Fr equency, Duration) Notes Start Date End Date Status DULoxetine HCl 30 MG 1 capsule Orally On ce a day; Duration: 30 day(s) 05/06/2023 Active Immunizations Vaccine Route Administration Date Status Comme nts Tetanus Tdap-Adacel (over 7yrs) Unknown 05/18/2006 Admi nistered MMR Unknown 07/19/1996 Administered HEPB VACC PED/ADOL DOSE IM Unknown 01/01/2003 Administe red HEPB VACC PED/ADOL DOSE IM Unknown 04/20/2005 Administe red COVID 19 Pfizer Unknown 08/12/2021 Administered Problems Problem Type SNOMED Code ICD Code Onset Dates Problem Status W/U Status Risk Notes Problem Mood disorder ([id number]) Mood disorder (F39) Active confirmed Plan Of Treatment No Information Insurance Providers Payer Name Payer Address Payer Phone Subscriber Number Group Number Insured Name Patient Relationship to Insured Coverage Start Date Coverage End Date [employer] [address] [place] [address] [id number] OCTAVIO MANE Self - patient is the insured Medical (General) History Surgical History Surgery Date(Month/Year) 2007, 2012, 2015
--- OUTSIDE RECORDS SUMMARY | 2025-08-12 11:26 | XMS_ITS | Clinical Summary ---
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 Active Social History Tobacco Use Types Packs/Day Years Used Date Smoking Tobacco: Never Smokeless Tobacco: Never Tobacco Cessation:Counseling Given: Not Answered Alcohol Use Standard Drinks/Week Comments Yes 0 (1 standard drink = 0.6 oz pur e alcohol) social PHQ-2 Answer Date Recorded Patient Health Questionnaire-2 Score 0 12/24/2022 PHQ-2A Answer Date Recorded Patient Health Questionnaire-2 Score 0 12/24/2022 Comments No Sex and Gender Information Value Date Recorded Sex Assigned at Not on file Legal Sex Female 7:06 PM EDT Gender Identity Not on file Sexual Orientation Not on file Last Filed Vital Signs Vital Sign Reading Time Taken Comments Blood Pressure 128/89 12/24/2022 10:58 AM EDT Pulse 93 12/24/2022 10:58 AM EDT Temperature 36.8 C (98.2 F) 12/17/2022 10:26 AM EDT Respiratory Rate 14 12/24/2022 10:5 8 AM EDT Oxygen Saturation 99% 12/24/2022 10: 58 AM EDT Inhaled Oxygen Concentration - - Weight 77.4 kg (170 lb 10.2 oz) 023 10:58 AM EDT Height 157.5 cm (5' 2 ) 12/24/2022 10:5 8 AM EDT Body Mass Index 31.21 12/24/2022 10:58 AM EDT Plan of Treatment Health Maintenance Due Date Last Done Comments [facility]-/Child/Adol SDOH Screenings 1992 [facility]-IPV Vaccines (2 of 3 - 4-dose series) 08/16/1996 07/19/1996 [facility]-Varicella Vaccines (1 of 2 - 13+ 2-dose series) 2005 [facility]-Hepatitis B Vaccines (3 of 3 - 3-dose series) 06/15/2005 04/20/2005, 01/01/2003 [facility]- SDOH Screenings 2010 [facility]-Adult SDOH Screenings 2010 [facility]-DTaP,Tdap,and Td Vaccine s (3 - Td or Tdap) 05/18/2016 05/18/2006, 07/19/1996 HPV Vaccines (1 - 3-dose SCD M series) 2019 [facility]-Depression Screening 12/25/2023 12/24/2022 [facility]-Pap Smear 11/10/2024 11/10/2021 [id number] Vaccine (2 - season) 2025 08/12/2021 [facility]-Influenza Vaccine (#1) 2025 06/28/2018 [facility]-Cervical Cancer Screening 11/10/2026 [facility]-HPV/Cotest 11/10/2026 11/10/2021 [facility]-Zoster Vaccines (1 of 2) 2042 [facility]-HIV Screening Completed 04/21/2015 [facility]-Hepatitis C Screening Completed 04/21/2015 [facility]-Obesity Intervention Completed 023, 12/17/2022, 07/12/2022 [facility]-HIB Vaccines Aged Out No longer e ligible based on patient's age to complete this topic [facility]-Hepatitis A Vaccines Aged Out No longer eligible based on patient's age to complete this topic [facility]-Pneumococcal Vaccine: Pediatrics (0 to 5 Years) and At-Risk Patients (6 to 49 Years) Aged Out No longer eligible b ased on patient's age to complete this topic [facility]-Rotavirus Vaccines Aged Out No lo nger eligible based on patient's age to complete this topic Procedures Procedure Name Priority Date/Time Associated Diagnosis Comments PAP TEST - CYTOLOGY Routine 11/10/2021 1 1:33 AM EST Encounter for annual routine gynecological examination HEPATITIS C ANTIBODY W/REFLEX TO HCV QUANT PCR Routine 04/21/2015 2:47 PM EDT HIV 1/2 ANTIBODY/ANTIGEN SCREEN WITH REFLEX TO HIV I/II DIFFERENTIATION Routine 04/21/2015 2:47 PM EDT from Last 3 Months or Most Recently Relevant to Health Maintenance Results * Pap Smear (11/10/2021 11:33 AM EST) Case Report Cytology Case: [id number] Authorizing Provider: Donny Ashraf MD Collected: 11/10/2021 1133 Ordering Location: Obstetrics & Gynecology Received: 11/11/2021 0910 First Screen: ANAYA Spears Pathologist: Adelina Neves MD Specimen: ThinPrep Pap Test, Liquid-Based Cervical/Vaginal, CERVICAL/VAGINAL 11/17/2021 4:38 PM EST [facility] Interpretation NEGATIVE FOR INTRAEPITHELIAL LESION OR MALIGNANCY 11/17/2021 4:38 PM EST [facility] at 1638 EST Other Findings Parakeratosis. 2021 4:38 PM EST [facility] Specimen Adequacy Satisfactory for evaluation; endocervical/cuello sformation zone component present. Slide imaged by the ThinPrep Imaging system and selected 22 centeno reviewed then full manual screening. 11/17/2021 4:38 PM EST [facility] Cervical cytology is a screening test primarily for squamous cancers and precursors and has associated false negative and positive results. New technologies such as liquid based sampling may decrease but will not eliminate all false negative results. Regular screening and follow-up of unexplained clinical signs and symptoms are recommended to minimize false negative results. Please see the ASCCP website (www.asccp.org)fo r followup recommendations. If HPV testing was requested, correlation with the results is suggested (please call Microbiology at [phone] for results). 11/17/2021 4:38 PM EST [facility] Menstrual Status Cyclic 11/18/19 4:38 PM EST [facility] History of Hysterectomy Not Applicable 11/17/2021 4:38 PM EST [facility] Contraceptive History Not Applicable 11/17/2021 4:38 PM EST [facility] Screening Type Routine Screen 2021 4:38 PM EST [facility] High Risk? No 11/17/2021 4:38 PM EST [facility] HPV Testing Requested? Request HPV testing if ASCUS or LSIL. 11/17/2021 4:38 PM EST [facility] Previous Cancer History No 11/17/2021 4:38 PM EST [facility] Clinical Information Z01.419 - Encounter for annual routine gynecological examination [ICD-10-CM] 11/17/2021 4:38 PM EST [facility] Last Menstrual Period 11/09/21 11/17/2021 4:38 PM EST [facility] Swab Vaginal and cervical cytologic material / Unknown Non-blood Collection / Unknown 11/10/2021 11:33 AM EST 11/11/2021 9:10 AM EST us Donny Ashraf MD LAB CYTOLOGY ORDERABLES Final R esult Performing Organization Address City/[facility]/ZIP Co de Phone Number [facility] [address] [place] [address] * HIV 1 & 2 Antibody/Antigen Screen (04/21/2015 2:47 PM EDT) HIV 1 Result NONREACTIVE Screening for HIV 1 and 2 antibodies is NONREACTIVE. No confirmatory testing is required. [facility] 04/21/2015 2:47 PM EDT 04/21/2015 6:22 PM EDT us Brenda Calderón MD LAB BLOOD ORDERABLES Final Re sult [facility] * Hepatitis C Antibody (04/21/2015 2:47 PM EDT) Hepatitis C Antibody NEGATIVE Reference Range: Negative [facility] 04/21/2015 2:47 PM EDT 04/21/2015 6:22 PM EDT us Brenda Calderón MD LAB BLOOD ORDERABLES Final Re sult [facility] from Last 3 Months or Most Recently Relevant to Health Maintenance Insurance [employer]
== END 2025-08-10 23:59 ==
LOC: LAB.DROPOF 08-12 10:36
PROVIDERS: Visit Provider Student in an Organized Health Care Education/Training Program
DX: N39.0 Urinary tract infection, site not specified (principal); J06.9 Acute upper respiratory infection, unspecified
CPT/HCPCS: 87086; 87631